=== PATIENT | male | born 1985 | race Caucasian/White ===

== ENCOUNTER 2020-04-04 20:09 | Emergency (ER) | payer BC, SELFPAY ==
[2020-04-04 20:15] VITALS: BP 159/99; PULSE 99; RESP 18; TEMP 36.6; O2SAT 97; BMI 27.7
[2020-04-04 20:19] VITALS: BP 159/99; PULSE 99; RESP 18; TEMP 36.6; O2SAT 97; BMI 27.8
--- NOTE | 2020-04-04 20:44 | HMH.EDUTC ---
[facility] [place] Clinical Impression: Laceration Disposition: Home, Self-Care Condition on Discharge: Good Instructions: Laceration Repair, DI for Laceration Repair Additional Instructions: You have required stitches today. Please read the following instructions so you know how to care for them: 1. Keep wound area dry for the first 24 hours. 2 May clean gently with mild soap and water, after 48 hours to prevent crusting over suture knots. 3. You may shower if your provider gives permission but do not take a bath until the skin is healed.. 4. Never leave a wet dressing or Band-Aid on your stitches as this allows bacteria to reach the area and may cause infection. Band-aids can cause the wound to sweat and not recommended to wear for long periods of time Watch for signs of infection: Increasing redness, tenderness or warmth around the suture site Unusual swelling around the site Appearance of pus around each suture or any red streaks Fever If you develop any of the above signs or symptoms of infection, Follow up with Family Physician immediately 5. Suture removal in _7-10_days 6. Return to [facility] or follow up with family doctor for removal. This can be done by any medical provider during regular hours on Monday through Monday, by appointment. Prescriptions: Amoxicillin/Potassium Clav [Augmentin 875-125 Tablet] 1 tab PO Q12H 7 Days #14 tab Transmission Status: Pending to [facility]/pharmacy #[id number] Referrals: Austin Levy [Primary Care Provider] - As needed Forms: Work/School Release Time of Disposition: 20:49 Medical Decision Making - Alphonso Inquiry Pt receiving controlled substance: No Alphonso was queried for this patient: No Vital Signs: 04/04/20 20:15 04/04/20 20:19 Temperature 97.9 F 97.9 F Temperature Source Oral Oral Pulse Rate [Right] 99 H 99 H Respiratory Rate 18 18 Blood Pressure [Right Arm] 159/99 H 159/99 H Blood Pressure Mean [Right Arm] 119 119 Blood Pressure Source [Right Arm] Automatic Cuff Automatic Cuff Blood Pressure Position [Right Arm] Sitting Sitting 02 Sat by Pulse Oximetry 97 97 Oxygen Delivery Method Room Air Room Air Orders (Tests/Meds): ED MEDICATIONS Generic Name Dose Route Start Last Admin Trade Name Freq PRN Reason Stop Dose Admin Amoxicillin/Clavulanate Potassium 1 each 04/04/20 20:48 04/04/20 20:48 Amoxicillin/Pot Clavulan 500mg Tablet PO 04/04/20 20:49 1 each ONCE ONE Administration Protocol Discontinued Medications Generic Name Dose Route Start Last Admin Trade Name Jackie PRN Reason Stop Dose Admin Tetanus/Reduced Diphtheria/Acell Pertussis 0.5 ml 04/04/20 20:22 04/04/20 20:31 Tet/Diphth/Pert-Adult 0.5ml Syringe IM 04/04/20 20:23 0.5 ml .ONCE ONE Administration Medical Decision Narrative: Wound cleaned well with betadine and saline, wound closed with 5.0, 4 simple interrupted sutures, irrigated extensively wound edges approximated well [facility] [place] - General Stated complaint: ao 1212 1946 lac Time Seen by Provider: 04/04/20 20:20 Mode of Arrival: Ambulatory Source of Information: Patient Limitations: No Limitations Description of Symptoms (Recalled from Triage Doc. by RN): Small lac to top of left hand from a piece of sheet metal, bleeding controlled HEENT Symptoms (Recalled from RN notes): No Resp Symptoms (Recalled from RN notes): No Skin Symptoms (Recalled from RN notes): Yes MS Symptoms (Recalled from RN notes): No Functional Status (Recalled from RN notes): wnl - History of Present Illness Provider Complaint: Patient state that he was packing some metal when it slipped and cut the top of his left hand State that he immediately applied pressure and came in to get it checked State that he is not sure of last tetanus shot - Related Data Home Medications Medication Instructions Recorded Confirmed Gabapentin 600 mg PO BID 01/21/19 01/21/19 Rizatriptan Benzoate [Rizatriptan] 10 mg PO DIRECTED 01/21/19 01/21/19 SUMAtriptan hill
[2020-04-04 20:56] VITALS: BP 159/99; PULSE 99; RESP 18; TEMP 36.6; O2SAT 97
== END 2020-04-04 20:57 | disposition home or self-care (01) ==
PROVIDERS: Emergency Provider Emergency Medicine; PCP Internal Medicine
DX: S61.412A Laceration without foreign body of left hand, initial encounter (principal); W26.8XXA Contact with other sharp object(s), not elsewhere classified, initial encounter; Y92.89 Other specified places as the place of occurrence of the external cause; Z23 Encounter for immunization; F17.290 Nicotine dependence, other tobacco product, uncomplicated
CPT/HCPCS: 12001; 90471; 90715; 99201

== ENCOUNTER → 2020-11-16 07:20 | Outpatient (CLI) | payer BC, SELFPAY ==
[2020-11-16 08:15] LABS: Basophils # 0.1 K/mm3 (0-0.2); Basophils % 0.7 % (0.1-2.0); Eosinophils # 0.7 K/mm3 (0.0-0.4); Eosinophils % 9.1 % (0.1-12.0); Hematocrit 46.4 % (42.0-52.0); Lymphocytes # 2.9 K/mm3 (0.7-4.5); Lymphocytes % 39.8 % (10-50); Mean Corpuscular HGB Conc 32.3 g/dL (31.8-35.4); Mean Corpuscular Hemoglobin 30.1 pg (27.0-31.2); Mean Corpuscular Volume 93.2 fl (80-94); Mean Platelet Volume 9.2 fl (7.4-10.4); Monocytes # 0.4 K/mm3 (0.1-1.0); Monocytes % 5.5 % (1.7-9.3); Neutrophils # 3.3 K/mm3 (1.8-7.8); Platelet Count 275 K/mm3 (142-424); Red Blood Count 4.98 M/mm3 (4.60-6.20); Red Cell Distribution Width 12.8 % (11.5-17.5); White Blood Count 7.3 K/mm3 (4.8-10.8)
[2020-11-16 08:35] LABS: Alanine Aminotransferase 37 U/L (12-78); Albumin Level 4.5 g/dl (3.5-5.0); Albumin/Globulin Ratio 1.7 (1.1-1.8); Alkaline Phosphatase 74 U/L (38-126); Amylase 61 U/L (30-110); Anion Gap 13.3 mEq/L (5-15); Aspartate Amino Transferase 28 U/L (17-59); Bilirubin,Total 0.5 mg/dl (0.2-1.3); Blood Urea Nitrogen 12 mg/dl (9-20); Calcium 9.4 mg/dl (8.4-10.2); Carbon Dioxide 31 mmol/L (22.0-30.0); Chloride 103 mmol/L (98-107); Chol/HDL Ratio 3.1 (1-3.5); Cholesterol 163 mg/dl (140-200); Estimated Glomerular Filt Rate 110 ml/min (>60); GFR (African American) 133 ML/MIN (>60); Globulin 2.7 g/dL (1.3-3.2); Glucose 100 mg/dl (74-100); HDL Cholesterol 53 mg/dl (40-60); Lipase 96 U/L (23-300); Potassium 4.3 mmoL/L (3.5-5.1); Sodium 143 mmol/L (136-145); Total Protein,Serum 7.2 g/dl (6.3-8.2); Triglycerides 102 mg/dl (30-150); VLDL Cholesterol 20 mg/dL (0-40)
[2020-11-16 08:47] LABS: Direct LDL Cholesterol 83.25 mg/dL (100-129)
[2020-11-16 09:04] LABS: Thyroid Stimulating Hormone 2.34 uIU/mL (0.465-4.68)
[2020-11-16 12:13] LABS: Hemoglobin A1C 5.4 % (4.0-6.0)
== END ==
PROVIDERS: Visit Provider Internal Medicine
DX: R10.9 Unspecified abdominal pain (principal); E78.5 Hyperlipidemia, unspecified; Z13.1 Encounter for screening for diabetes mellitus
CPT/HCPCS: 36415; 80053; 80061; 82150; 83036; 83690; 84443; 85025

== ENCOUNTER 2021-01-21 16:00 | Emergency (ER) | payer BC, SELFPAY ==
[2021-01-21 16:20] VITALS: BP 146/85; PULSE 73; RESP 20; TEMP 36.9; O2SAT 99; BMI 28.3
--- NOTE | 2021-01-21 16:48 | HMH.EDUTC ---
[facility] [place] Dis[place] Clinical Impression: Flank pain, Testicular pain, left Hematuria Qualifiers: Hematuria type: unspecified type Qualified Code(s): R31.9 - Hematuria, unspecified Disposition: Still a Patient Condition on Discharge: Fair Referrals: Austin Levy [Primary Care Provider] - Time of Disposition: 16:56 Medical Decision Making - Medical Records Medical records reviewed: No: I reviewed the patient's medical records. - Alphonso Inquiry Pt receiving controlled substance: No Vital Signs: 01/21/21 16:20 Temperature 98.5 F Temperature Source Oral Pulse Rate [Right Brachial] 73 Respiratory Rate 20 Blood Pressure [Right Arm] 146/85 H Blood Pressure Mean [Right Arm] 105 Blood Pressure Source [Right Arm] Automatic Cuff Blood Pressure Position [Right Arm] Sitting 02 Sat by Pulse Oximetry 99 Oxygen Delivery Method Room Air - Lab Data Lab results reviewed: Yes: I reviewed the patient's lab results. [facility] [place] HPI - General Stated complaint: sharp lower back pains Time Seen by Provider: 01/21/21 16:48 Mode of Arrival: Ambulatory Source of Information: Patient Limitations: No Limitations Description of Symptoms (Recalled from Triage Doc. by RN): PATIENT C/O LEFT LOWER BACK/FLANK PAIN AND STATES WHEN HE WOKE UP THIS MORNING FELT LIKE HE HAD BEEN KICKED IN HIS LEFT TESTICLE. HE REPORTS HE HAD A CT DONE APPROX 5-6 WEEKS AGO, WHICH PER PATIENT SHOWED A CYST ON HIS KIDNEY. HEENT Symptoms (Recalled from RN notes): No Resp Symptoms (Recalled from RN notes): No Skin Symptoms (Recalled from RN notes): No MS Symptoms (Recalled from RN notes): No Functional Status (Recalled from RN notes): WNL - History of Present Illness Provider Complaint: He states that about 1200 today he started having severe left lower back and flank pain that radiated to his left testicle. At that time his pain was a 10/10 on pain scale. Once he started to the hospital his pain eased off, so he came to the [facility] to be seen. At this time his pain has eased off significantly. He is worried that he has a kidney stone that will begin to move again and start back with the severe pain he was in earlier. - Related Data Home Medications Medication Instructions Recorded Confirmed Gabapentin 600 mg PO BID 01/21/19 01/21/19 Rizatriptan Benzoate [Rizatriptan] 10 mg PO DIRECTED 01/21/19 01/21/19 SUMAtriptan succinate [Imitrex] 100 mg PO NEEDED PRN 01/21/19 01/21/19 Previous Rx's Medication Instructions Recorded Azithromycin [Z-Rudy 250mg Tab*] 250 mg PO UD DOSE PK #6 tab 01/21/19 predniSONE [Prednisone 10mg Tab 10 mg PO UD DOSE PK 6 Days #21 pack 01/21/19 Dose-Pack] Amoxicillin/Potassium Clav 1 tab PO Q12H 7 Days #14 tab 04/04/20 [Augmentin 875-125 Tablet] Allergies Allergy/AdvReac Type Severity Reaction Status Date / Time ibuprofen [IBUPROFEN] Allergy Unknown Verified 01/21/19 20:12 - Worker's Comp Is this a Worker's Comp case?: No [facility] History - Hepatitis A Screen Drug use history?: No High risk sexual behaviors?: No History of sexually transmitted infection?: No Currently employed?: No Childcare worker?: No Do you have indoor plumbing?: Yes Do you have electricity?: Yes Attestation statement:: This patient has been screened for Hepatitis A risk factors. I have reviewed the patient's past medical history: Yes - Social History Smoking Status: Unknown if ever smoked Tobacco Type: smokeless tobacco # Packs/Day (cigarettes): 0 Alcohol Intake: never Occupational Status: employed Housing: house ROS Obtained: Yes All systems reviewed & no additional complaints - Constitutional Constitutional: Denies chills, Denies fever(s), Reports poor appetite, Denies malaise - Eyes Eyes: Denies eye discharge - ENT Ears, Nose, Mouth, and Throat: Denies dizziness, Denies otalgia, Denies sore throat - Cardiovascular Cardiovascular: Denies chest pain - Respiratory Respiratory: Denies chest congestion, Denies cough, De
--- NOTE | 2021-01-21 16:57 | PC.NURSE ---
PATIENT SENT TO ER PER Kenney SANTIAGO APRN FOR FURTHER EVALUATION. REPORT GIVEN TO Quinten GLORIA RN AND Rafita ALEXANDRE RN
[2021-01-21 17:03] VITALS: BP 147/107; PULSE 67; RESP 20; O2SAT 99; BMI 28.5
--- NOTE | 2021-01-21 17:08 | PC.NURSE ---
Pt states that he does not want an IV or any blood taken, aware
--- NOTE | 2021-01-21 17:18 | CT_ITS ---
PROCEDURE INFORMATION: Exam: CT Abdomen And Pelvis Without Contrast Exam date and time: 01/21/2021 5:18 PM Age: 35 years old Clinical indication: Patient HX: PT C/O left flank pain with hematuria TECHNIQUE: Imaging protocol: Computed tomography of the abdomen and pelvis without contrast. Radiation optimization: All CT scans at this facility use at least one of these dose optimization techniques: automated exposure control; mA and/or kV adjustment per patient size (includes targeted exams where dose is matched to clinical indication); or iterative reconstruction. COMPARISON: ABDPELW/O CT ABD PELVIS W/O CONTRAST 07/31/2016 9:19 PM FINDINGS: Lungs: Lung bases are clear. Mediastinal space: A small hiatal hernia is present. Liver: There is enlargement of the liver, measuring 22 cm. The liver is otherwise unremarkable. Gallbladder and bile ducts: Normal. No calcified stones. No ductal dilation. Pancreas: Normal. No ductal dilation. Spleen: Normal. No splenomegaly. Adrenal glands: Normal. No mass. Kidneys and ureters: 3 mm stone adjacent to the left UVJ. There is mild left hydroureter. There is mild left hydronephrosis. There is inflammatory left perinephric stranding. There is a simple cyst in the left kidney measuring 2.6 cm. The right kidney is normal. The right ureter is normal. Stomach and bowel: No bowel obstruction or significant bowel wall thickening. There is moderately excessive colonic stool content. Appendix: No evidence of appendicitis. Intraperitoneal space: 1.4 cm x 1.3 cm mesenteric fat density lesion with surrounding soft tissue rind in the left lower quadrant (image 86 series 3 and image 24 series 601). Similar but smaller lesion measuring 9 mm is also seen in the left lower quadrant mesentery on image 90 series 3. No free fluid. No fluid collections. No pneumoperitoneum. Vasculature: Unremarkable. No abdominal aortic aneurysm. Lymph nodes: Unremarkable. No enlarged lymph nodes. Urinary bladder: The urinary bladder is otherwise unremarkable. Reproductive: Unremarkable as visualized. Bones/joints: Unremarkable. No acute fracture. Soft tissues: There is a fat-containing umbilical hernia. There is a nonobstructing left inguinal hernia. IMPRESSION: 1. Recently passed 3 mm left renal stone which sits just adjacent to the left UVJ in the dependent portions of the urinary bladder. There is mild residual left hydroureteronephrosis. 2. 9 mm and 1.4 cm x 1.3 cm mesenteric fat density lesions in the left lower quadrant may represent a focal areas of fat necrosis or early epiploic appendagitis in the appropriate clinical setting. COMMENTS: Consistent with the [employer]'s Incidental Findings Committee white paper (J Am Rachna Radiol 2018): Any incidental renal lesion less than 1 cm or classified as too small to characterize, or any incidental cystic renal lesion characterized as simple-appearing, is likely benign. No follow-up imaging is recommended for these lesions per consensus recommendations based on imaging criteria.
[2021-01-21 17:19] LABS: Apearance,Urine Clear (Clear); Bilirubin,Urine Negative (Negative); Blood, Urine 3+ (Negative); Color,Urine Dark Yellow (Yellow); Glucose,Urine (UA) Negative (Negative); Ketones,Urine Negative (Negative); Protein,Urine 1+ (Negative); UTC Leukocyte Esterase,Urine Negative (Negative); UTC Nitrate,Urine Negative (Negative); Urobilinogen,Urine 0.2 EU/dl (0.2)
--- NOTE | 2021-01-21 17:19 | HMH.EDGENADL ---
ED Disposition Clinical Impression: Ureteral calculus, left Disposition: Home Health Service Condition on Discharge: Good Instructions: DI for Kidney Stones Additional Instructions: Additional instructions for KIDNEY STONE (URETERAL CALCULUS): See your physician if symptoms return. Drink plenty of fluids. Strain your urine and save any stones you catch. Return immediately if you develop a fever or have uncontrollable vomiting or uncontrollable pain. What is known about DIET and KIDNEY STONES: Most kidney stones contain calcium oxalate. The logical assumption would be that you should avoid calcium and oxalate in your diet. Contrary to what you would think, this is not necessarily the case. What is actually recommended for kidney stone prevention is a diet that contains MODERATELY HIGH AMOUNTS OF CALCIUM and is LOW IN SODIUM with PLENTY OF FLUIDS. Avoiding oxalate containing foods is recommended by some experts, but is controversial. Following the DASH (Dietary Approaches to Stop Hypertention) has been shown to significantly reduce the incidence of kidney stones. The DASH diet encourages you to reduce the sodium in your diet and eat a variety of foods rich in nutrients that help lower blood pressure, such as potassium, calcium and magnesium. Recommendations: Fluids: It is widely agreed upon that you need to drink plenty of fluids. A minimum would be 8-10 glasses (8 oz each) of fluid per day. Some experts recommend as much as 14-15 glasses a day. Sodium: The way to lower calcium in your urine is to lower your sodium intake. Try not to get more than 1500 mg a day. Calcium: Dietary calcium prevents absorption of oxalate. Make sure you get about 1000 to 1200 mg a day. You can get enough calcium from dairy products without taking supplements. Calcium should be ingested with meals, not in between meals. You need to get your calcium at mealtime to decrease the absorption of oxalate from other foods. Oxalate: Although some experts recommend avoiding oxalate in your diet, there have been no studies that prove this works. Eating more calcium will reduce oxalate absorption, and is probably all that is needed to reduce oxalate in your urine. Oxalate containing foods are generally good for you in all other respects - leafy greens, nuts, etc... So avoiding them unnecessarily might not be the best thing for your health. If you want to do something to avoid oxalate, avoid spinach and rhubarb - those are extremely high in oxalate (or at least eat a high calcium meal with these). ALSO: If you retrieve your stone by straining your urine, take it to your physician for stone analysis, which can help tailor your dietary recommendations. For further reading, check out the [facility] web page about the kidney stone diet: [email or web address] Referrals: Austin Levy [Primary Care Provider] - - Critical Care Critical Care Time: No Attestation: On 01/21/21, the high probability of a clinically significant, sudden or life threatening deterioration of the following system(s) required my full and direct attention, intervention and personal management. The time I documented below is in addition to time spent performing reported procedures but includes the following listed in this critical care notation. Medical Decision Making - Alphonso Inquiry Pt receiving controlled substance: No Vital Signs: 01/21/21 16:20 01/21/21 17:03 Temperature 98.5 F Temperature Source Oral Pulse Rate [Right Brachial] 73 67 Respiratory Rate 20 20 Blood Pressure [Right Arm] 146/85 H 147/107 H Blood Pressure Mean [Right Arm] 105 120 Blood Pressure Source [Right Arm] Automatic Cuff Blood Pressure Position [Right Arm] Sitting 02 Sat by Pulse Oximetry 99 99 Oxygen Delivery Method Room Air Room Air - Lab Data Lab Results 01/21/21 16:51: Urine Color Dark yellow, Urine Ap
[2021-01-21 17:51] VITALS: BP 139/97; PULSE 69; RESP 20; TEMP 36.9; O2SAT 99
== END 2021-01-21 17:53 | disposition home health service (06) ==
LOC: UTC 16:07 → ER 16:56
PROVIDERS: Nurse Practitioner Family; Emergency Provider Emergency Medicine; PCP Internal Medicine
DX: N20.1 Calculus of ureter (principal); F17.290 Nicotine dependence, other tobacco product, uncomplicated
CPT/HCPCS: 74176; 81003; 99282

== ENCOUNTER → 2021-03-08 08:34 | Outpatient (CLI) | payer BC, SELFPAY ==
[2021-03-08 08:41] LABS: Adenovirus F 40/41, stool Not Detected (NotDetected); Astrovirus Not Detected (NotDetected); Campylobacter Not Detected (NotDetected); Clostridium Difficile A/B, PCR Not Detected (NotDetected); Cryptosporidium Not Detected (NotDetected); Cyclospora Cayetanesis Not Detected (NotDetected); Entamoeba histolytica Not Detected (NotDetected); Enteroaggregative E coli Not Detected (NotDetected); Enteropathogenic E coli Not Detected (NotDetected); Enterotoxigenic E coli Not Detected (NotDetected); Giardia lamblia Not Detected (NotDetected); Norovirus Not Detected (NotDetected); Plesimonas Shigalloides, PCR Not Detected (NotDetected); Rotavirus A Not Detected (NotDetected); Salmonella, PCR Not Detected (NotDetected); Sapovirus Not Detected (NotDetected); Shiga-like toxin E coli Not Detected (NotDetected); Shigella Enterovasive E coli Not Detected (NotDetected); Vibrio Cholerae Not Detected (NotDetected); Vibrio, PCR Not Detected (NotDetected); Yersinia Entercolitica, PCR Not Detected (NotDetected)
== END ==
LOC: LAB.DROPOF 08:36
PROVIDERS: Visit Provider Internal Medicine
DX: R19.7 Diarrhea, unspecified (principal)
CPT/HCPCS: 87507

== ENCOUNTER → 2021-03-11 08:18 | Outpatient (CLI) | payer BC, SELFPAY ==
[2021-03-11 10:03] LABS: Thyroid Stimulating Hormone 1.52 uIU/mL (0.465-4.68)
[2021-03-12 14:32] LABS: Deamidated Gliadin Abs, IgA 3 units (0-19); Deamidated Gliadin Abs, IgG 3 units (0-19); Tissue Transglutaminase IgA Ab <2 U/mL (0-3); Tissue Transglutaminase IgG Ab 6 U/mL (0-5)
[2021-03-12 18:08] LABS: Endomysial IgA Antibody Negative (Negative)
[2021-03-13 08:41] LABS: Reticulin IgA Antibody Negative titer (Neg:<1:2.5)
[2021-03-16 17:09] LABS: Strongyloides IgG Antibody Negative (Negative)
== END ==
PROVIDERS: Visit Provider Internal Medicine
DX: R19.7 Diarrhea, unspecified (principal)
CPT/HCPCS: 36415; 83516; 84443; 86255; 86256; 86682

== ENCOUNTER → 2023-04-05 07:58 | Outpatient (CLI) | payer BC, SELFPAY ==
--- NOTE | 2023-04-05 08:03 | US_ITS ---
FINAL REPORT CLINICAL HISTORY: EPIGASTRIC PAIN FINDINGS: RIGHT UPPER QUADRANT ULTRASOUND Sonographic images of the right upper quadrant were obtained. The pancreas is partially obscured. There is fatty infiltration of the liver. There is a small amount of sludge in the gallbladder. The common duct measures 4 mm. Limited images of the right kidney are normal. IMPRESSION: Gallbladder sludge. Fatty liver. Reviewed, Interpreted and Dictated by Farshad Wilburn MD Transcribed by Marielena Patel Authenticated and . [facility]
== END ==
PROVIDERS: PCP Internal Medicine; Visit Provider Internal Medicine
DX: R10.13 Epigastric pain (principal)
CPT/HCPCS: 76705

== ENCOUNTER 2023-04-28 10:20 | Outpatient (CLI) | payer BC, SELFPAY ==
[2023-04-28] MEDS: SODIUM CHLORIDE 0.9% 10ML SYR (RAD ONLY) 10 ML IV (10:30)
--- NOTE | 2023-04-28 10:35 | NM_ITS ---
FINAL REPORT CLINICAL HISTORY: ABD PAIN 10:30 am 8.08 [facility]ci tc choletec 2.1 mcg of ckk no pain during cck no stones per u/s done on 03/15/23 from [facility] COMPARISON: None FINDINGS: Sequential anterior projection images of the abdomen were obtained after the intravenous injection of 8.08 mCi technetium 99m Choletec. There is normal uptake of radiotracer by the liver. The bile ducts are visualized by 15 minutes. Gallbladder activity is seen by 5 minutes. Bowel activity is noted by 30 minutes. After 1 hour, 2.1 ?g of CCK was injected intravenously for calculation of gallbladder ejection fraction. The gallbladder ejection fraction is 24%, which is abnormally low but nonspecific. IMPRESSION: No evidence of cystic duct or bile duct obstruction. Gallbladder ejection fraction of 24%, abnormally low but nonspecific. Reviewed, Interpreted and Dictated by Mario Roque III, MD Transcribed by Genevieve Cooper Authenticated and [facility]
[2023-04-28] MEDS: SINCALIDE 2.1 MCG in 0.9 % SODIUM CHLORIDE 50 ML 100 MCG IV (12:00)
[2023-04-28] MEDS: ISOTOPE CHOLETECH;1 DOSE (UP TO 15 MCI) IV (12:11)
== END 2023-04-28 23:59 ==
LOC: RAD 10:22
PROVIDERS: PCP Internal Medicine; Visit Provider Internal Medicine
DX: R10.11 Right upper quadrant pain (principal)
CPT/HCPCS: 78227; A9537; J2805

== ENCOUNTER 2023-11-11 17:41 | Emergency (ER) | payer BC, SELFPAY ==
[2023-11-11 18:10] VITALS: BP 142/93; PULSE 115; RESP 16; TEMP 36.8; O2SAT 98; BMI 30.9
--- NOTE | 2023-11-11 18:27 | PC.NURSE ---
PATIENT TRANSFERRED TO ER PER Alexia CHAUHAN APRN FOR FURTHER EVALUATION. REPORT GIVEN TO DR. ESCOBAR BY Alexia CHAUHAN APRN. PATIENT REFUSED WHEELCHAIR TRANSPORT. PATIENT AMBULATED TO ER WITH [facility] STAFF AT THIS TIME
[2023-11-11 18:29] LABS: Apearance,Urine Clear (Clear); Bilirubin,Urine Negative (Negative); Blood, Urine Negative (Negative); Color,Urine Yellow (Yellow); Glucose,Urine (UA) Negative (Negative); Ketones,Urine Negative (Negative); Protein,Urine Negative (Negative); Specific Gravity, Urine >= 1.030 (1.005-1.030); UTC Leukocyte Esterase,Urine Negative (Negative); UTC Nitrate,Urine Negative (Negative); Urobilinogen,Urine 0.2 EU/dl (0.2)
--- NOTE | 2023-11-11 18:32 | EXP.UTC ---
Discharge Plan Disposition Patient Disposition: Still a Patient Prescriptions Prescriptions: No Action gabapentin 600 tablet 600 mg PO BID sumatriptan succinate 100 MG tablet 100 mg PO NEEDED PRN (Reason: Migraine Headache) rizatriptan 10 MG tablet,disintegrating 10 mg PO DIRECTED Patient Comments: 1 tablet orally at onset of migraine, repeat dose in 2 hours as needed azithromycin 250 MG tablet 250 mg PO UD DOSE PK Qty: 6 0RF Rx Instructions: Take two (2) tablets today, then one (1) tablet days #2 thru #5 prednisone 10 MG tablets,dose pack 10 mg PO UD DOSE PK 6 Days Qty: 21 0RF amoxicillin-pot clavulanate 1 EACH tablet 1 tab PO Q12H 7 Days Qty: 14 0RF Referrals Follow up/Referrals: Austin Levy [Primary Care Provider] - See instructions Discharge ED Provider: Star ([facility])Sakshi [facility] [place] General Stated complaint: Possible kidney stone,lower-mid back papin Mode of Arrival: Ambulatory Source of Information: Patient Limitations: No Limitations Time Seen by Provider: 11/11/23 18:25 Description of Symptoms (Recalled from Triage Doc. by RN): PATIENT C/O PAIN RUQ PAIN THAT RADIATES INTO BACK THAT STARTED EARLIER TODAY HEENT Symptoms (Recalled from RN notes): No Resp Symptoms (Recalled from RN notes): No Skin Symptoms (Recalled from RN notes): No MS Symptoms (Recalled from RN notes): No Functional Status (Recalled from RN notes): WNL History of Present Illness Provider Complaint: 37 yr old male presents with c/o rt upper quad pain that radiates to back that started today.hx of kidney stones and gallbladder works at 24% Related Data Home Medications Medication Instructions Recorded Confirmed gabapentin 600 mg tablet 600 mg PO BID MIGRAINES 01/21/19 01/21/19 rizatriptan 10 mg disintegrating 10 mg PO DIRECTED MIGRAINE 01/21/19 01/21/19 tablet sumatriptan succinate 100 mg tablet 100 mg PO NEEDED PRN Migraine 01/21/19 01/21/19 Headache Previous Rx's Medication Instructions Recorded azithromycin 250 mg tablet 250 mg PO UD DOSE PK #6 tabs 01/21/19 prednisone 10 mg tablets in a dose 10 mg PO UD DOSE PK 6 days ##21 01/21/19 pack amoxicillin 875 mg-potassium 1 tab PO Q12H 7 days #14 tabs 12/12/20 clavulanate 125 mg tablet Allergies Allergy/AdvReac Type Severity Reaction Status Date / Time ibuprofen [IBUPROFEN] Allergy Unknown Verified 01/21/19 20:12 Worker's Comp Is this a Worker's Comp case?: No PFSH [facility] Disclaimer: The information contained in this section may have been updated after the patient was seen, as this information can be updated by other users. Social History , [employer]) Smoking Status: Unknown if ever smoked alcohol intake: never current occupational status: employed Travel in the last 8 weeks: None housing: house ROS Obtained: Yes All systems reviewed & no additional complaints except as documented Constitutional Constitutional: Reports system reviewed and no additional complaints, except as documented Eyes Eyes: Reports system reviewed and no additional complaints, except as documented ENT Ears, Nose, Mouth, and Throat: Reports system reviewed and no additional complaints, except as documented Cardiovascular Cardiovascular: Reports system reviewed and no additional complaints, except as documented Respiratory Respiratory: Reports system reviewed and no additional complaints, except as documented Gastrointestinal Gastrointestingal: Reports system reviewed and no additional complaints, except as documented, as per HPI and abdominal pain Musculoskeletal Musculoskeletal: Reports system reviewed and no additional complaints, except as documented Integumentary/Breasts Skin/Breast: Reports system reviewed and no additional complaints, except as documented Neurologic Neurologic: Reports system reviewed and no additional complaints, except as documented Hematologic/Lymphatic Henatologic/Lymphatic: Reports system reviewed and no additional complaints, except as documented Allergic/Immunologic Allergic/Immunologic: Reports system reviewed and no additional complaints, except as documented Physical Exam General General appearance: alert and in no apparent distress Eye Eye exam: Present normal appearance ENT ENT exam: Present normal exam, normal oropharynx, mucous membranes moist and TM's normal bilaterally Respiratory Respiratory exam: Present normal lung sounds bilaterally Cardiovascular Cardiovascular exam: Present regular rate and normal rhythm Abdominal Exam Abdominal exam: Present soft, tenderness and guarding Abdominal tenderness: Present RUQ and moderate Neurological Exam Neurological exam: Present alert and oriented X3 Skin Skin exam: Present warm and intact Medical Decision Making Medical Records Medical records reviewed: Yes I reviewed the patient's medical records. Alphonso Inquiry Pt receiving controlled substance: No Alphonso was queried for this patient: No Vital Signs: 07/20/24 18:10 Temperature 98.3 F Temperature Source Oral Pulse Rate [Left Brachial] 115 H Respiratory Rate 16 Blood Pressure [Left Arm] 142/93 H Blood Pressure Mean [Left Arm] 109 Blood Pressure Source [Left Arm] Automatic Cuff Blood Pressure Position [Left Arm] Sitting 02 Sat by Pulse Oximetry 98 Oxygen Delivery Method Room Air Lab Data Lab results reviewed: Yes I reviewed the patient's lab results. Lab Results 11/11/23 18:29: Urine Color Yellow, Urine Appearance Clear, Urine pH 6.0, Ur Specific [place] >= 1.030, Urine Protein Negative, Urine Glucose (UA) Negative, Urine Ketones Negative, Urine Blood Negative, Urine Nitrate Negative, Urine Bilirubin Negative, Urine Urobilinogen 0.2, Ur Leukocyte Esterase Negative Physician Consults Physician Consulted: christos- Time: 18:36 Reason -: Pt condition Comment/Response: transfer to er for eval
[2023-11-11 18:51] VITALS: BP 149/91; PULSE 110; RESP 16; O2SAT 97; BMI 31.0
--- NOTE | 2023-11-11 18:51 | CT_ITS ---
PROCEDURE INFORMATION: Exam: CT Abdomen And Pelvis With Contrast Exam date and time: 11/11/2023 7:09 PM Age: 37 years old Clinical indication: Abdominal pain; Localized; Right upper quadrant (ruq); Additional info: Ruq pain TECHNIQUE: Imaging protocol: Computed tomography of the abdomen and pelvis with contrast. Total images: 332 Radiation optimization: All CT scans at this facility use at least one of these dose optimization techniques: automated exposure control; mA and/or kV adjustment per patient size (includes targeted exams where dose is matched to clinical indication); or iterative reconstruction. Contrast material: ISOVUE; Contrast volume: 75 ml; Contrast route: IV; COMPARISON: CT ABDOMEN PELVIS WO CON 01/21/2021 5:22 PM FINDINGS: Lungs: Minor bibasilar atelectasis. No airspace consolidation. Stable benign 4 mm left lower lobe nodule, axial image 9. Additional stable micronodule left lower lobe, axial image 21. Heart: Normal heart size. Liver: Mild hepatomegaly at 20.7 cm. Hepatic steatosis with regional areas of sparing. Normal contour. No discrete mass. Gallbladder and biliary ducts: Normal. No calcified stones. No ductal dilation. Pancreas: Normal. No ductal dilation. Spleen: Normal. No splenomegaly. Adrenal glands: Normal. No mass. Kidneys and ureters: No hydronephrosis or nephrolithiasis. 2.3 cm left renal cyst. Additional subcentimeter left renal cortical hypodensities are too small to characterize but statistically cysts requiring no strict follow-up. No ureteral stones. Stomach and bowel: Unremarkable stomach and duodenum. Borderline to mildly dilated loops of distal small bowel up to 3 cm in diameter with associated mild wall thickening likely reflecting ileus and enteritis. Doubt mechanical bowel obstruction. Unremarkable proximal small bowel. Unremarkable terminal ileum. Unremarkable colon and rectum. Appendix: Normal appendix. Intraperitoneal space: Mild mesenteric edema associated with the small bowel process. No free air. No significant fluid collection. Vasculature: Abdominal aorta is normal in caliber. Major abdominal vessels enhance appropriately. Lymph nodes: Unremarkable. No enlarged lymph nodes. Urinary bladder: Collapsed bladder. Reproductive: Nonenlarged prostate. Bones/joints: Scattered mild degenerative changes thoracolumbar spine. No acute osseous abnormality. Soft tissues: Tiny fat containing left inguinal hernia. Small fat containing periumbilical hernia. IMPRESSION: 1. Borderline to mildly dilated loops of distal small bowel, with associated wall thickening and adjacent edema, compatible with acute enteritis and secondary ileus pattern. Doubt mechanical bowel obstruction. No free air. 2. Normal appendix. 3. Mild hepatomegaly. 4. Hepatic steatosis. 5. Benign left basilar pulmonary micronodules. COMMENTS: Consistent with the [employer]'s Incidental Findings Committee white paper (J Am Rachna Radiol 2018): Any incidental renal lesion less than 1 cm or classified as too small to characterize, or any incidental cystic renal lesion characterized as simple-appearing, is likely benign. No follow-up imaging is recommended for these lesions per consensus recommendations based on imaging criteria.
[2023-11-11 18:53] LABS: Microscopic, Urine URINE MICROSCOPIC (MICROSCOPIC)
[2023-11-11 18:56] LABS: Appearance,Urine CLEAR (Clear); Bilirubin,Urine Negative (Negative); Blood, Urine Negative (Negative); Color,Urine YELLOW (Yellow); Glucose,Urine (UA) Negative (Negative); Ketones,Urine Negative (Negative); Leukocyte Esterase,Urine Negative (Negative); Nitrate,Urine Negative (Negative); Protein,Urine Negative (Negative); Specific Gravity, Urine 1.025 (1.005-1.030); Urobilinogen,Urine 0.2 EU/dl (0.2)
[2023-11-11 18:59] LABS: Basophils % 0.3 % (0.1-2.0); Chloride 104 mmol/L (98-107); Eosinophils # 0.2 K/mm3 (0.0-0.4); Eosinophils % 2.2 % (0.1-12.0); Hematocrit 49.7 % (42.0-52.0); Lymphocytes # 0.6 K/mm3 (0.7-4.5); Lymphocytes % 5.6 % (10-50); Mean Corpuscular HGB Conc 32.2 g/dL (31.8-35.4); Mean Corpuscular Hemoglobin 31.8 pg (27.0-31.2); Mean Corpuscular Volume 98.9 fl (80-94); Mean Platelet Volume 8.5 fl (7.4-10.4); Monocytes # 0.5 K/mm3 (0.1-1.0); Monocytes % 4.7 % (1.7-9.3); Neutrophils # 9.7 K/mm3 (1.8-7.8); Neutrophils % 87.2 % (37.0-80.0); Platelet Count 251 K/mm3 (142-424); Red Blood Count 5.03 M/mm3 (4.60-6.20); Red Cell Distribution Width 13.4 % (11.5-17.5); White Blood Count 11.1 K/mm3 (4.8-10.8)
[2023-11-11 19:00] LABS: Potassium 4.3 mmoL/L (3.5-5.1); Sodium 140 mmol/L (136-145)
[2023-11-11 19:01] LABS: MANUAL DIFFERENTIAL MANUAL DIFFERENTIAL (MANUAL DIFF)
[2023-11-11 19:02] LABS: Alanine Aminotransferase 120 U/L (12-78); Aspartate Amino Transferase 58 U/L (17-59); Blood Urea Nitrogen 12 mg/dl (9-20); Creatinine Clearance Estimated 167 mL/min (50-200); Estimated Glomerular Filt Rate 94 ml/min (>60); GFR (African American) 114 ML/MIN (>60)
[2023-11-11 19:03] LABS: Albumin Level 4.6 g/dl (3.5-5.0); Albumin/Globulin Ratio 1.4 (1.1-1.8); Alkaline Phosphatase 78 U/L (38-126); Anion Gap 13.3 mEq/L (5-15); Bilirubin,Total 0.9 mg/dl (0.2-1.3); Carbon Dioxide 27 mmol/L (22.0-30.0); Globulin 3.2 g/dL (1.3-3.2); Glucose 124 mg/dl (74-100); Lipase 74 U/L (23-300); Total Protein,Serum 7.8 g/dl (6.3-8.2)
[2023-11-11] MEDS: IOPAMIDOL-370 (76%);100ML BOTTLE 75 ML IV (19:11)
[2023-11-11] MEDS: SODIUM CHLORIDE 0.9% 10ML SYR (RAD ONLY) 10 ML IV (19:11)
[2023-11-11] MEDS: LACTATED RINGERS 1000ML 1,000 ML 999 ML IV (19:14)
[2023-11-11] MEDS: ONDANSETRON 4MG/2ML VIAL 4 MG IV (19:14)
[2023-11-11] MEDS: ACETAMINOPHEN 1,000MG/100ML VIAL 1000 MG IV (19:14)
[2023-11-11] MEDS: MORPHINE 4MG/ML SYRINGE 4 MG IV (19:14)
[2023-11-11 19:22] LABS: Eosinophils % 3 % (0-3); Lymphocytes % 6 % (10-50); Monocytes % 5 % (2-9); Neutrophils % 86 % (42-76); Platelet Estimate Normal; RBC Morphology Normal; Total Cells Counted 100
[2023-11-11 19:47] LABS: Bacteria,Urine Trace /lpf; Mucus,Urine 1+ /lpf; Squamous Epithelial Cell,Urine Occasional #/hpf (0-5)
--- NOTE | 2023-11-11 20:00 | [facility].EDGENADL ---
Discharge Plan Disposition Patient Disposition: Home, Self-Care Prescriptions Prescriptions: New prednisone 50 mg tablet 50 mg PO DAILY 5 Days Qty: 5 0RF No Action gabapentin 600 tablet 600 mg PO BID sumatriptan succinate 100 MG tablet 100 mg PO NEEDED PRN (Reason: Migraine Headache) rizatriptan 10 MG tablet,disintegrating 10 mg PO DIRECTED Patient Comments: 1 tablet orally at onset of migraine, repeat dose in 2 hours as needed azithromycin 250 MG tablet 250 mg PO UD DOSE PK Qty: 6 0RF Rx Instructions: Take two (2) tablets today, then one (1) tablet days #2 thru #5 prednisone 10 MG tablets,dose pack 10 mg PO UD DOSE PK 6 Days Qty: 21 0RF amoxicillin-pot clavulanate 1 EACH tablet 1 tab PO Q12H 7 Days Qty: 14 0RF Referrals Follow up/Referrals: Austin Levy [Primary Care Provider] - See instructions Activity Restrictions/Add. Instructions Additional Instructions/Restrictions: At this time it was felt you are safe to be discharged home. If new or worsening symptoms please do not hesitate to return the emergency department. Please please call Dr. Bryant at [facility] at [phone] to get an appointment for the inflammation of your small bowel. Please take your medications as prescribed. Clinical Impressions Clinical Impression: Inflammation of small intestine, Abdominal pain, Back pain Instructions Patient Instructions: DI for Acute Abdominal Pain Discharge ED Provider: Dedrick Murphy General Adult HPI General Chief complaint: Abdominal Pain Stated complaint: Possible kidney stone,lower-mid back papin Time Seen by Provider: 11/11/23 18:25 Mode of Arrival: Ambulatory Source of Information: Patient Limitations: No Limitations Description of Symptoms (Recalled from ER Triage Doc. by RN): pt states around 1400 he had sudden onset mid to lower back pain. pt states the pain radiates to his R flank and up under his ribs. pt states the pain is constant but worse in waves. pt states his pain is currently sharp, shooting, and 8/10. pt reports nausea. pt also c/o a migraine that is sharp in his temples and 7/10. pt is sensitive to sound and has photophobia. pt reports the migraine is presenting the same as his typical migraines. pt has a hx of kidney stones x2. pt passed them without surgical intervention both times. History of Present Illness HPI narrative: Patient is a 37-year-old male with past medical history of previous kidney stones, chronic migraines, chronic back pain who presents emergency department for evaluation of multiple complaints. This is largely centered around his abdominal pain which is right hemiabdominal more towards the top radiating straight through to his paraspinal lumbar area. There is no vomiting however there is associated nausea. Difficult to remember whether or not there is dysuria. He has an associated headache that is consistent with his migraines when his pain onsets and he bears down. No other acute complaints at this time. No chest pain. Related Data Home Medications Medication Instructions Recorded Confirmed gabapentin 600 mg tablet 600 mg PO BID MIGRAINES 01/21/19 01/21/19 rizatriptan 10 mg disintegrating 10 mg PO DIRECTED MIGRAINE 01/21/19 01/21/19 tablet sumatriptan succinate 100 mg tablet 100 mg PO NEEDED PRN Migraine 01/21/19 01/21/19 Headache Previous Rx's Medication Instructions Recorded azithromycin 250 mg tablet 250 mg PO UD DOSE PK #6 tabs 01/21/19 prednisone 10 mg tablets in a dose 10 mg PO UD DOSE PK 6 days ##21 01/21/19 pack amoxicillin 875 mg-potassium 1 tab PO Q12H 7 days #14 tabs 04/04/20 clavulanate 125 mg tablet prednisone 50 mg tablet 50 mg PO DAILY bowel inflammation 11/11/23 5 days #5 tabs Allergies Allergy/AdvReac Type Severity Reaction Status Date / Time No Known Allergies Allergy Verified 11/11/23 19:02 [facility] Disclaimer: The information contained in this section may have been updated after the patient was seen, as this information can be updated by other users. Social History , [employer]) Smoking Status: Never smoker alcohol intake: never current occupational status: employed Travel in the last 8 weeks: None housing: house ROS Obtained: Yes Systems reviewed as appropriate & no additional complaints except as documented Physical Exam General General appearance: alert and in no apparent distress Head Head exam: atraumatic and normocephalic Eye Eye exam: Present PERRL ENT ENT exam: Present mucous membranes moist Neck Neck exam: Present normal inspection Chest Chest inspection: Present normal inspection and symmetric chest wall rise Respiratory Respiratory exam: Absent respiratory distress Cardiovascular Cardiovascular exam: Present normal rhythm and tachycardia Abdominal Exam Abdominal exam: Present soft; Absent tenderness, guarding or rebound Extremities Exam Extremities exam: Present normal inspection Back Exam Back exam: Absent tenderness Neurological Exam Neurological exam: Present alert Psychiatric Psychiatric exam: Present normal affect Skin Skin exam: Present warm and dry Medical Decision Making Alphonso Inquiry Pt receiving controlled substance: No Vital Signs: 11/11/23 18:10 11/11/23 18:51 Temperature 98.3 F Temperature Source Oral Pulse Rate [Left Brachial] 115 H 110 H Respiratory Rate 16 16 Blood Pressure [Left Arm] 142/93 H 149/91 H Blood Pressure Mean [Left Arm] 109 110 Blood Pressure Source [Left Arm] Automatic Cuff Automatic Cuff Blood Pressure Position [Left Arm] Sitting Sitting 02 Sat by Pulse Oximetry 98 97 Oxygen Delivery Method Room Air Room Air Lab Data Lab Results 11/11/23 17:50: Urine Color Yellow, Urine Appearance Clear, Urine pH 6.0, Ur Specific [place] 1.025, Urine Protein Negative, Urine Glucose (UA) Negative, Urine Ketones Negative, Urine Blood Negative, Urine Nitrate Negative, Urine Bilirubin Negative, Urine Urobilinogen 0.2, Ur Leukocyte Esterase Negative, Urine RBC 3-5, Urine WBC 3-5, Ur Squamous Epith Cells Occasional, Urine Bacteria Trace, Urine Mucus 1+ 11/11/23 18:29: Urine Color Yellow, Urine Appearance Clear, Urine pH 6.0, Ur Specific [place] >= 1.030, Urine Protein Negative, Urine Glucose (UA) Negative, Urine Ketones Negative, Urine Blood Negative, Urine Nitrate Negative, Urine Bilirubin Negative, Urine Urobilinogen 0.2, Ur Leukocyte Esterase Negative 11/11/23 18:48: WBC 11.1 H, RBC 5.03, Hgb 16.0, Hct 49.7, MCV 98.9 H, MCH 31.8 H, MCHC 32.2, RDW 13.4, Plt Count 251, MPV 8.5, Neut % (Auto) 87.2 H, Lymph % (Auto) 5.6 L, [place] % (Auto) 4.7, Eos % (Auto) 2.2, Baso % (Auto) 0.3, Neut # (Auto) 9.7 H, Lymph # (Auto) 0.6 L, [place] # (Auto) 0.5, Eos # (Auto) 0.2, Baso # (Auto) 0.0, Total Counted 100, Neutrophils % (Manual) 86 H, Lymphocytes % (Manual) 6 L, Monocytes % (Manual) 5, Eosinophils % (Manual) 3, Platelet Estimate Normal, RBC Morphology Normal, Sodium 140, Potassium 4.3, Chloride 104, Carbon Dioxide 27, Anion Gap 13.3, BUN 12, Creatinine 0.90, Estimated Creat Clear 167, Estimated GFR 94, Est GFR ( Amer) 114, Glucose 124 H, Calcium 10.0, Total Bilirubin 0.9, AST 58, ALT 120 H, Alkaline Phosphatase 78, Total Protein 7.8, Albumin 4.6, Globulin 3.2, Albumin/Globulin Ratio 1.4, Lipase 74 11/11/23 18:48 11/11/23 18:48 Orders (Tests/Meds): ED MEDICATIONS Discontinued Medications Generic Name Dose Route Start Last Admin Trade Name Freq PRN Reason Stop Dose Admin Acetaminophen 1,000 mg 11/11/23 18:51 11/11/23 19:14 Acetaminophen 1,000mg/100ml Vial IV 11/11/23 18:52 1,000 mg ONCE ONE Administration Lactated Ringer's 1,000 mls @ 999 mls/hr 11/11/23 18:51 11/11/23 19:14 Lactated Ringer's 1000 Ml Bag IV 11/11/23 19:51 999 mls/hr .Q1H1M ONE Administration Iopamidol 75 ml 11/11/23 19:10 11/11/23 19:11 Iopamidol-370 (76%);100ml Bottle IV 11/11/23 19:11 75 ml ONCE ONE Administration Morphine Sulfate 4 mg 11/11/23 18:51 11/11/23 19:14 Morphine 4mg/Ml Syringe IV 11/11/23 18:52 4 mg ONCE ONE Administration Ondansetron HCl 4 mg 11/11/23 18:51 11/11/23 19:14 Ondansetron 4mg/2ml Vial IV 11/11/23 18:52 4 mg ONCE ONE Administration Sodium Chloride 10 ml 11/11/23 19:10 11/11/23 19:11 Sodium Chloride 0.9% 10ml Syr (Rad Only) IV 11/11/23 19:11 10 ml ONCE ONE Administration ORDERS Category Date Time Status CT abdomen pelvis w con Stat Cat Scan 11/11/23 18:51 Completed CBC w/Auto Diff [Complete Blood Count Auto Diff] Stat Lab 11/11/23 18:48 Completed CMP [Comprehensive Metabolic Panel] Stat Lab 11/11/23 18:48 Completed Lipase Stat Lab 11/11/23 18:48 Completed Urinalysis and Microscopic Stat Lab 11/11/23 17:50 Completed Medical Decision Narrative: In summary patient is a 37-year-old male with past medical history described above presents emergency department for evaluation of abdominal pain radiated through to his back with associated headache with bearing down. Patient is hemodynamically stable nontoxic-appearing upon arrival, appearing in pain, tachycardic, afebrile. Differential diagnosis includes hepatobiliary pathology, ureterolithiasis, urinary tract infection, among others. Workup will be conducted with hematologic labs, urinalysis, CT abdomen pelvis IV contrast. Ureterolithiasis is more likely given that patient has a nontender abdominal exam and pain persists independent independent of palpation is not modifiable. His migraine headache is similar in quality and has nonfocal neurologic exam otherwise therefore workup with CT imaging intracranial imaging was considered but will be deferred. Initial inventions include IV Tylenol, crystalloid bolus, morphine, Zofran. Initial workup reviewed by me, hematologic labs have slight leukocytosis that is not particularly concerning, no MELL or critical electrolyte abnormality, lipase normal. Urinalysis interpreted by me and not consistent with infection. CT imaging of the abdomen pelvis shows dilated loops of distal small bowel with associated wall thickening and adjacent edema compatible with acute enteritis and secondary ileus pattern. No concern for mechanical obstruction on the CT imaging, normal appendix, mild hepatomegaly and hepatic steatosis, benign left basilar micronodules. Patient underwent p.o. trial was successful. Upon repeat evaluation patient had significant resolution of pain. Last bowel movement within the last 24 hours no concern for obstruction. Given this patient is appropriate for discharge at this time and will follow-up with GI on an outpatient basis was given return precautions. Critical Care Critical Care Time Critical Care Time: No
[2023-11-11 20:25] VITALS: PULSE 100
[2023-11-11] MEDS: predniSONE 20MG TAB 40 MG PO (20:35)
[2023-11-11 20:40] VITALS: BP 160/79; PULSE 92; RESP 20; TEMP 36.9; O2SAT 97
== END 2023-11-11 20:41 | disposition home or self-care (01) ==
LOC: UTC 17:44 → ER 18:28
PROVIDERS: Nurse Practitioner Family; Emergency Provider Emergency Medicine; PCP Internal Medicine
DX: R10.31 Right lower quadrant pain (principal); M54.59 Other low back pain; K52.9 Noninfective gastroenteritis and colitis, unspecified; R51.9 Headache, unspecified; R11.0 Nausea
CPT/HCPCS: 74177; 80053; 81001; 81003; 83690; 85007; 85025; 85027; 96361; 96374; 96375; 99285; J0131; J2270; J2405; J7120; Q9967

== ENCOUNTER 2023-11-14 14:05 | Outpatient (CLI) | payer BC, OTHER, SELFPAY ==
[2023-11-16 16:56] LABS: Endomysial IgA Antibody Negative (Negative)
[2023-11-16 17:11] LABS: Deamidated Gliadin Abs, IgA 3 units (0-19); Deamidated Gliadin Abs, IgG 2 units (0-19); Tissue Transglutaminase IgA Ab <2 U/mL (0-3); Tissue Transglutaminase IgG Ab 5 U/mL (0-5)
[2023-11-18 18:11] LABS: Reticulin IgA Antibody Negative titer (Neg:<1:2.5)
== END 2023-11-14 23:59 | disposition home or self-care (01) ==
LOC: LAB 14:10
PROVIDERS: PCP Internal Medicine; Visit Provider Internal Medicine
DX: K29.90 Gastroduodenitis, unspecified, without bleeding (principal)
CPT/HCPCS: 36415; 83516; 86255; 86256